=== PATIENT | male | born 1980 | race African-American/Black ===

== ENCOUNTER 2017-08-31 11:54 | Emergency (ER) | payer MEDICARE, MEDICAID ==
[~2017-08-31] VITALS: Ht 185.4 cm; Wt 100.0 kg
[2017-08-31 11:54] VITALS: BP 129/84
[2017-08-31] MEDS ORDERED: KETOROLAC 60MG/2ML VIAL IM ONE (13:30)
== END 2017-08-31 17:22 | disposition home or self-care (01) ==
LOC: ER 17:03
DX: M25.512 Pain in left shoulder (principal); M54.5 Low back pain; Z90.49 Acquired absence of other specified parts of digestive tract
CPT/HCPCS: 72110; 73030; 99284

== ENCOUNTER 2019-08-11 15:20 | Emergency (ER) | payer OTHER, MEDICAID ==
[~2019-08-11] VITALS: Ht 185.4 cm; Wt 100.0 kg
[2019-08-11] MEDS ORDERED: KETOROLAC 60MG/2ML VIAL IM ONE (20:15)
[2019-08-11] MEDS ORDERED: CLINDAMYCIN 600 MG in DEXTROSE 5% WATER 50 ML IV ONE (20:15)
[2019-08-11] MEDS ORDERED: CLINDAMYCIN 600MG PREMIX 50 ML IV NR (21:00)
[2019-08-11 21:52] VITALS: BP 145/79
== END 2019-08-11 21:53 | disposition home or self-care (01) ==
LOC: ER 15:20
DX: R68.84 Jaw pain (principal); K12.2 Cellulitis and abscess of mouth; I10 Essential (primary) hypertension; Z90.49 Acquired absence of other specified parts of digestive tract; Z98.890 Other specified postprocedural states
CPT/HCPCS: 96365; 96372; 99284; J1885; J3490; J7060